=== PATIENT | female | born 1965 | race Caucasian/White ===

== ENCOUNTER 2019-09-23 13:57 | Observation (INO) | payer OTHER ==
[2019-09-22 09:13] LABS: BASOPHILS # (AUTO) 0.02 x10^3/uL (0-0.1); BASOPHILS % (AUTO) 0 % (0-1); EOSINOPHILS # (AUTO) 0.22 x10^3/uL (0-0.4); EOSINOPHILS % (AUTO) 3 % (1-7); LYMPHOCYTES # (AUTO) 1.61 x10^3/uL (1-3.4); LYMPHOCYTES % (AUTO) 23 % (22-44); MD NO; MEAN CORPUSCULAR HGB CONC 32.3 g/dL (32.4-35.8); MEAN CORPUSCULAR VOLUME 86.8 fL (80-100); MEAN PLATELET VOLUME 10.1 fL (7.4-10.4); MONOCYTES # (AUTO) 0.42 x10^3/uL (0.2-0.8); MONOCYTES % (AUTO) 6 % (2-9); NEUTROPHILS # (AUTO) 4.63 x10^3/uL (1.8-6.8); NEUTROPHILS % (AUTO) 67 % (42-75); PLATELET COUNT 312 x10^3/uL (130-400); RED BLOOD COUNT 4.58 x10^6/uL (3.82-5.3); RED CELL DISTRIBUTION WIDTH 14.6 % (9.6-15.2)
[2019-09-22 09:22] LABS: ANION GAP 8 mmol/L (5-15); CHLORIDE 111 mmol/L (98-107); CREATININE 0.66 mg/dL (0.55-1.02)
[~2019-09-23] VITALS: Ht 167.6 cm; Wt 83.6 kg
[~2019-09-23 13:57] MED LIST: MULT-252 PO; armour thyroid PO
[2019-09-23] MEDS ORDERED: GABAPENTIN 300 MG CAPSULE PO ONE (14:30)
[2019-09-23] MEDS ORDERED: ACETAMINOPHEN 500 MG TABLET PO ONE (14:30)
[2019-09-23] MEDS ORDERED: SCOPOLAMINE PATCH, 1.5MG PATCH.TD72 TD ONE (14:30)
[2019-09-23] MEDS ORDERED: MIDAZOLAM 1 MG/ML, 2ML ONE (14:52)
[2019-09-23] MEDS ORDERED: FENTANYL PF 250 MCG/5ML ONE (14:52)
[2019-09-23] MEDS ORDERED: BUPIVACAINE/PF-EPI 0.25% 1:200K ONE ×2 (14:58→16:35)
[2019-09-23] MEDS ORDERED: NEOSPORIN OINT, 15GM ONE (14:58)
[2019-09-23] MEDS ORDERED: FLUORESCEIN SODIUM 500 MG/5 ML ONE (14:58)
[2019-09-23] MEDS ORDERED: LACTATED RINGERS 1,000 ML IV SCH (15:00)
[2019-09-23] MEDS ORDERED: ROCURONIUM 10MG/ML,5ML ONE (15:16)
[2019-09-23] MEDS ORDERED: PROPOFOL 10 MG/ML, 20ML ONE (15:17)
[2019-09-23] MEDS ORDERED: ONDANSETRON 2MG/ML, 2ML ONE ×2 (15:17)
[2019-09-23] MEDS ORDERED: DEXAMETHASONE 4 MG/ML, 1ML ONE ×2 (15:17)
[2019-09-23] MEDS ORDERED: LIDOCAINE GEL 2%, 5ML ONE (15:17)
[2019-09-23] MEDS ORDERED: LABETALOL 5MG/ML, 20ML IV PRN (15:30)
[2019-09-23] MEDS ORDERED: ALBUTEROL SULFATE 2.5 MG/3 ML NPPB PRN (15:30)
[2019-09-23] MEDS ORDERED: DIAZEPAM 5 MG/ML, 2ML IVPush PRN (15:30)
[2019-09-23] MEDS ORDERED: ONDANSETRON 2MG/ML, 2ML IV PRN (15:30)
[2019-09-23] MEDS ORDERED: EPHEDRINE 50 MG/ML, 1ML IVPush PRN (15:30)
[2019-09-23] MEDS ORDERED: PROMETHAZINE 12.5 MG SUPP PR PRN (15:30)
[2019-09-23] MEDS ORDERED: OXYcodone 5 MG/5 ML ORAL.SOL UDC PO PRN (15:30)
[2019-09-23] MEDS ORDERED: MIDAZOLAM 1 MG/ML, 2ML IV PRN (15:30)
[2019-09-23] MEDS ORDERED: PROMETHAZINE 25 MG/ML, 1ML IV PRN (15:30)
[2019-09-23] MEDS ORDERED: HYDROmorphone 1 MG/ML, 1ML INJ IVPush PRN (15:30)
[2019-09-23] MEDS ORDERED: ONDANSETRON ODT 8 MG PO PRN (15:30)
[2019-09-23] MEDS ORDERED: hydrALAzine 20 MG/ML, 1ML IV PRN (15:30)
[2019-09-23] MEDS ORDERED: SUCCINYLCHOLINE 20 MG/ML, 10ML ONE (15:42)
[2019-09-23] MEDS ORDERED: CEFAZOLIN 1,000 MG ONE (15:53)
[2019-09-23] MEDS ORDERED: KETOROLAC 30 MG/1 ML ONE (17:25)
[2019-09-23] MEDS ORDERED: SUGAMMADEX 200 MG/2 ML IVPush ONE (17:25)
[2019-09-23] MEDS ORDERED: FUROSEMIDE 20 MG/2 ML ONE (17:32)
[2019-09-23] MEDS ORDERED: MEPERIDINE/PF 25MG/ML,1ML ONE (17:58)
[2019-09-23] MEDS ORDERED: OXYcodone/APAP 5/325MG TABLET PO PRN (18:00)
[2019-09-23] MEDS ORDERED: ONDANSETRON 2MG/ML, 2ML IVPush PRN (18:00)
[2019-09-23] MEDS ORDERED: morphine SULFATE 10 MG/ML, 1ML IVPush PRN (18:00)
[2019-09-23] MEDS: KETOROLAC 30 MG/1 ML IVPush SCH (18:00)
[2019-09-23] MEDS: MEPERIDINE/PF 25MG/ML,1ML IVPush PRN ×2 (18:00→18:15)
[2019-09-23] MEDS ORDERED: FENTANYL PF 100 MCG/2ML ONE (18:15)
[2019-09-23] MEDS ORDERED: OXYcodone 5 MG/5 ML ORAL.SOL UDC ONE (18:16)
[2019-09-23] MEDS: FENTANYL PF 100 MCG/2ML IV PRN ×2 (18:30→18:50)
[2019-09-23] MEDS ORDERED: DIAZEPAM 5 MG/ML, 2ML ONE (18:55)
[2019-09-23] MEDS: DOCUSATE 100 MG CAPSULE PO SCH (20:39)
[2019-09-23] MEDS: SIMETHICONE 80 MG CHEW TAB PO SCH (20:39)
[2019-09-24] MEDS: KETOROLAC 30 MG/1 ML IVPush SCH ×2 (00:02→05:49)
[2019-09-24] MEDS: LACTATED RINGERS 1,000 ML IV SCH ×2 (00:15→03:12)
[2019-09-24 04:02] VITALS: BP 96/60
[2019-09-24] MEDS: DOCUSATE 100 MG CAPSULE PO SCH (07:45)
[2019-09-24] MEDS: SIMETHICONE 80 MG CHEW TAB PO SCH (07:45)
[2019-09-24 08:05] VITALS: BP 104/67
[2019-09-24] MEDS ORDERED: OXYC-302 PO (09:20)
[2019-09-24] MEDS ORDERED: IBUP200T49 PO (09:21)
[2019-09-24] MEDS ORDERED: FLU VACC QS2019-20 36MOS UP/PF 0.5 ML IM-VACC ONE (10:00)
[2019-09-24 10:25] VITALS: BP 110/68
== END 2019-09-24 10:53 | disposition home or self-care (01) ==
LOC: STAR 13:57 → 3WST 19:47 → 4NE 09-24 00:18 → STAR 09-24 08:37 → DCLOUNGE 09-24 10:44
PROVIDERS: ADMIT Obstetrics & Gynecology Maternal & Fetal Medicine; ATTEND Obstetrics & Gynecology Maternal & Fetal Medicine
DX: N92.0 Excessive and frequent menstruation with regular cycle (principal); D25.9 Leiomyoma of uterus, unspecified; R79.1 Abnormal coagulation profile; Z23 Encounter for immunization
CPT/HCPCS: 36415; 58552; 71046; 80048; 81025; 85014; 85018; 85025; 88307; 90471; 90686; 93005; 96374; 96376; G0378; J0330; J0690; J1100; J1885; J2175; J2250; J2405; J2704; J3010; J3360; J1940